=== PATIENT | male | born 1975 | race Caucasian/White ===

== ENCOUNTER 2022-04-21 10:23 | Outpatient (CLI) | payer BC, SELFPAY ==
--- NOTE | 2022-04-21 11:15 | CRLHL7_ITS ---
For Patients: As a result of the Century Cures Act, medical imaging exams and procedure reports are released immediately into your electronic medical record. You may view this report before your referring provider. If you have questions, please contact your health care provider. INDICATION: Exertional headaches. TECHNIQUE: 3D fcnj-[id number] magnetic resonance angiography of the head with 3D MIP reconstructions provided. Diffusion imaging was also obtained. COMPARISON: Brain MRA from 06/05/2012. FINDINGS: No evidence of acute ischemia. No proximal large vessel occlusion. The anterior cerebral arteries are patent. The middle cerebral arteries are patent. The posterior cerebral arteries are patent. The intradural vertebral arteries and basilar artery are patent. The intracranial internal carotid arteries are patent. No aneurysm or high flow vascular malformation. IMPRESSION: IMPRESSION 1. No acute ischemia. No proximal large vessel occlusion or flow-limiting stenosis. No aneurysm. Dictated by Orestes Ellison MD @ 04/21/2022 12:42:36 PM (Electronically Signed)
== END 2022-04-21 10:24 | disposition home or self-care (01) ==
PROVIDERS: PCP Family Medicine; Visit Provider Family Medicine
DX: G44.84 Primary exertional headache (principal)
CPT/HCPCS: 70544

== ENCOUNTER 2022-05-29 14:57 | Outpatient (CLI) | payer BC, SELFPAY ==
[2022-05-29 17:37] LABS: Albumin* 4.7 g/dL (3.3-5.0); Chloride* 94 mmol/L (96-114); Sodium* 133 mmol/L (135-149)
[2022-05-29 17:38] LABS: Potassium* 3.3 mmol/L (3.6-5.1)
[2022-05-29 17:40] LABS: Alkaline Phosphatase* 51 U/L (40-150); Aspartate Amino Transferase* 50 U/L (12-35); Bilirubin Total* 1.2 mg/dL (0.1-1.5); Blood Urea Nitrogen* 10 mg/dL (5-24); Carbon Dioxide* 29 mmol/L (20-32); Cholesterol* 201 mg/dL (90-199); Creatinine* 0.6 mg/dL (0.5-1.5); Estimated Glomerular Filt Rate 118 ml/min; Glucose* 116 mg/dL (60-115); Total Protein* 7.6 g/dL (6.0-8.3); Triglycerides* 391 mg/dL (40-149)
[2022-05-29 17:41] LABS: Alanine Aminotransferase* 78 U/L (4-50); Calcium* 9.6 mg/dL (8.4-10.6); HDL Cholesterol* 33 mg/dL (>=40); LDL Cholesterol Calculated 90 mg/dL (<100)
[2022-05-29 18:48] LABS: Creatinine Urine 26.2 mg/dL
[2022-05-29 18:52] LABS: Microalbumin Creatinine Ratio 30 mg/g (0-30); Microalbumin Urine 1 mg/dL
== END 2022-05-29 14:58 | disposition home or self-care (01) ==
PROVIDERS: PCP Family Medicine; Visit Provider Family Medicine
DX: E78.5 Hyperlipidemia, unspecified (principal); I10 Essential (primary) hypertension; E13.9 Other specified diabetes mellitus without complications; R73.9 Hyperglycemia, unspecified; Z13.89 Encounter for screening for other disorder
CPT/HCPCS: 80053; 80061; 82043; 82570

== ENCOUNTER 2023-06-14 13:21 | Outpatient (CLI) | payer BC, SELFPAY | END 2023-06-14 13:22 | disposition home or self-care (01) | LOC: NFLDREF 06-25 08:23 | PROVIDERS: PCP Family Medicine; Referring Provider Family Medicine; Visit Provider Nurse Practitioner Family | DX: E78.2 Mixed hyperlipidemia (principal); K76.0 Fatty (change of) liver, not elsewhere classified; E13.9 Other specified diabetes mellitus without complications | CPT/HCPCS: 80053; 80061 ==

== ENCOUNTER 2023-10-13 00:19 | Emergency (ER) | payer BC, SELFPAY ==
[2023-10-13 00:30] VITALS: BP 159/107; PULSE 99; RESP 18; TEMP 36.3; O2SAT 98; BMI 31.9
[2023-10-13] MEDS: predniSONE 20 MG TABLET 40 MG PO (01:03)
[2023-10-13] MEDS: hydrOXYzine pamoate 25 MG CAPSULE 50 MG PO (01:03)
--- NOTE | 2023-10-13 01:08 | ED_ITS ---
HPI - General Adult General Chief complaint: Allergic Reaction Stated complaint: rash Time Seen by Provider: 10/13/23 00:22 Source: patient Mode of arrival: ambulatory History of Present Illness HPI narrative: 48-year-old male presents the emergency department with itchy hives, worsening in nature. No airway compromise, lip, tongue, throat swelling or itching, no shortness of breath. No history of anaphylaxis. Hives originally started in the gluteal area along the posterior waist band about 2 and half weeks ago. He does spend a lot of time outdoors per his report and has potential exposures to grasses, plant material but also some household insecticides from spraying mosquitos. About 1 week after he had the 1st round of hives, he started oral semaglutide. He wonders if the medication could be connected since he has been having many more hives. He applied topical hydrocortisone and Benadryl to the original lesion on the waist band and things did improve. He went to [place] for a week and was off the semaglutide. He restarted the medication this morning and has been having worsening of hives ever since. It was very warm today and he was also working outside in the last couple of days as well. Lesions moved from the waist band to underneath the right armpit and he thought it could be ringworm because it had some central clearing. He tried applying some Lotrimin without significant improvement. No obvious tick exposures but we are in an endemic area. Worsening of hives along forearms and now upper thighs. Nothing on the face or neck. No one else with similar symptoms in the home. Other than the medication, no new exposures that he is aware of. He has been using Benadryl today with no significant improvement. Did also briefly try nondrowsy antihistamine once. He also has an immune modulating cream for eczema that he tried with some temporary relief of symptoms but only where the cream was applied. Has not been treated with steroids. Reports that he did have similar hives when he was probably 6 or 7 years old and was treated with some medication but he cannot remember what. Resolve without complication but has never had hives like this since. No recent signs of acute illness, COVID or other viral symptoms. Past medical history notable for obesity, hypertension, hyperlipidemia, type 2 diabetes. Medications accurate as listed with the exception of the oral semaglutide. Nonsmoker. Pertinent travel to [place] only. ROS is otherwise negative times 12 systems with the exception of the skin symptoms as described above. Related Data Previous Rx's ?Medication ?Instructions ?Recorded atenolol 50 mg tablet 50 mg PO DAILY #90 tabs 06/21/23 atorvastatin 20 mg tablet 20 mg PO QDAY #90 tabs 06/21/23 chlorthalidone 25 mg tablet 25 mg PO DAILY #90 tabs 06/21/23 losartan 100 mg tablet 100 mg PO DAILY #90 tabs 06/21/23 metformin 750 mg tablet,extended 1,500 mg (2 x 750 mg) PO QDAY #180 06/21/23 release 24 hr tabs omeprazole 20 mg capsule,delayed 20 mg PO DAILY #90 caps 06/21/23 release terbinafine HCl 250 mg tablet 250 mg PO QDAY #45 tabs 06/21/23 prednisone 20 mg tablet 20 mg PO BID #10 tabs 10/13/23 Allergies Allergy/AdvReac Type Severity Reaction Status Date / Time cyclobenzaprine Allergy Intermediate Nausea Verified 06/21/23 10:53 PFSH PFS Surgical History Status post open reduction and internal fixation (ORIF) of fracture ?Z98.890 - Other specified postprocedural states (ICD-10) ?Z87.81 - Personal history of (healed) traumatic fracture (ICD-10) Social History Smoking Status: Never smoker Little interest or pleasure in doing things: not at all Feeling down, depressed, or hopeless: not at all Exam Const: Vital Signs, click to edit/add: Vital Signs - 24 hr 10/13/23 00:30 Temperature 97.3 F L Pulse Rate [Pulse Oximeter] 99 Respiratory Rate 18 Blood Pressure [Ri ght Upper Arm] 159/107 H Pulse Oximetry 98 Oxygen Delivery Me thod Room Air Documenting provider has reviewed patient's vital signs: yes Common normals: no apparent distress General appearance: cooperative, comfortable and well kempt HENMT: Common normals: normocephalic and oropharynx normal Head and scalp: normocephalic Mouth: oral and palatal mucosa normal, lip normal and tongue normal Throat: posterior oropharynx normal Eye: Common normals: conjunctivae normal General eye: normal appearance of both eyes Conjunctiva: conjunctiva(e) normal Neck & C-Spine: Common normals: full ROM and no lymphadenopathy Resp: Common normals: normal respiratory effort, no use of accessory muscles and clear to auscultation bilaterally Effort & inspection: able to speak in complete sentences Auscultation: clear to auscultation bilaterally Cardio: Common normals: regular rate, regular rhythm, S1 normal heart sound, S2 normal heart sound and no murmurs Rate: regular rate Rhythm: regular rhythm Heart sounds: S1 normal and S2 normal Extremity: Common normals: normal to inspection and normal capillary refill Neuro: Speech: speech normal Motor exam: no movement abnormalities noted Psych: Appearance: well kempt Attitude: engaged Thought content: normal thought content Insight: insight good Judgement: judgment good Skin: Narrative: Mild hives along dorsal surface of forearms, slightly in right upper chest wall/axilla, waistband area, bilateral ventral upper thighs. No feet, hands, lower legs, neck, face. Typical have appearance with some central clearing and a few areas, slightly raised, sharp borders. Course Course ED Course: No signs of anaphylaxis, respiratory distress. Mild urticaria without adequate clinical response to Benadryl only. Only new potential medication is semaglutide but reaction started before medication. Most likely viral or environmental exposure, plants, etc.. Counseled patient that what is currently feeling the reaction may not necessarily be the same component that started the reaction. Once reaction starts, it can be more easily fueled by friction, heat, etc.. He seemed understand that this makes sense for him. He would like to stop the semaglutide, this is his choice. I do not necessarily think that there is a connection here. Suspected viral or environmental exposure. Recommended prednisone 20 mg twice daily, 1st dose given in ED. Total of 5 days. Will give 50 of Vistaril here in the ED. Patient will continue on nondrowsy antihistamine like Claritin, Vale or Zyrtec 1-2 times daily for the next 10 days. Benadryl 25 mg every 6 hours as needed for itch. Try to avoid heat and friction. Okay to use [id number] hydrocortisone cream, would discontinue the Lotrimin and Benadryl cream. Symptoms should start to improve after about 24 hours. If not improving at all after 3 days, would recommend office visit, blood work, viral swabs. Cold showers if significant itch in sudden worsening. ED presentation if airway compromise, lips the tongue and throat swelling. Vital Signs Vital signs: Initial Vital Signs Temperature 97.3 F L 10/13/23 00:30 Temperature Source Temporal Artery Scan 10/13/23 00:30 Pulse Rate 99 10/13/23 00:30 Pulse Rhythm Regular 10/13/23 00:30 Respiratory Rate 18 10/13/23 00:30 Blood Pressure 159/107 H 10/13/23 00:30 Blood Pressure Mean 124 H 10/13/23 00:30 Blood Pressure Position Sitting 10/13/23 00:30 Pulse Oximetry 98 10/13/23 00:30 Oxygen Delivery Method Room Air 10/13/23 00:30 Vital Signs Temperature 97.3 F L 10/13/23 00:30 Pulse Rate 99 10/13/23 00:30 Respiratory Rate 18 10/13/23 00:30 Blood Pressure 159/107 H 10/13/23 00:30 Pulse Oximetry 98 10/13/23 00:30 Oxygen Delivery Method Room Air 10/13/23 00:30 Temperature 97.3 F L 10/13/23 00:30 Pulse Rate 99 10/13/23 00:30 Respiratory Rate 18 10/13/23 00:30 Blood Pressure 159/107 H 10/13/23 00:30 Pulse Oximetry 98 10/13/23 00:30 Oxygen Delivery Method Room Air 10/13/23 00:30 Medications Administered Medications: Generic Name Dose Route Start Last Admin Trade Name Freq PRN Reason Stop Dose Admin Hydroxyzine Pamoate 50 mg 10/13/23 00:56 10/13/23 01:03 Hydroxyzine Pamoate 25 Mg Capsule PO 10/13/23 00:57 50 mg ONCE ONE Administration Prednisone 40 mg 10/13/23 00:56 10/13/23 01:03 Prednisone 20 Mg Tablet PO 10/13/23 00:57 40 mg ONCE ONE Administration Discharge Plan Discharge Clinical Impression: Urticaria Patient Disposition: Home w/ Parent or Adult Condition: Stable Instructions: Urticaria (ED) Additional Instructions: As we discussed, the hives are not a sign of pending anaphylaxis. There are no signs of airway compromise, tongue or lip swelling or other dangerous side effects. It can be very difficult to tell what is triggering the reaction. Most of the time it starts with some sort of new medication or a plant or chemical exposure. Once the immune system is triggered, it can then be more easily triggered by other things such as heat, friction, etc.. Since the reaction started before your new medication, I do not think that that is the source, but your decision to stop the medication is reasonable. I I would also offer that it is common this time of year for the reaction to be triggered by exposure to plants, weeds or other agricultural chemicals. Once the reaction starts, again it is often fueled by heat, friction or just repeat exposure through the air. I recommend applying topical hydrocortisone to any itchy areas and ice as needed for comfort. Try to avoid heat, friction and itching as much as possible. I have started you on prednisone, an immune suppressant for the next 5 days. Take this 2 times daily but try to avoid using 3 hours before bedtime. It may review up a little bit and make you hungry. Continue taking some sort of nondrowsy antihistamine like Claritin, Vale, Zyrtec or similar. Use this 1-2 times daily for the next 10 days. If you are still itchy, I would recommend Benadryl 25 mg every 6 hours. Most people stop getting a lot of new spots within 24 hours of starting the prednisone. If you start to get a anton again, take a cold shower, some Benadryl and manage as above. Many people grow into this type of allergy. If you tend to get it in the awlters again, it is recommended that you restart the antihistamines as above. If you noticed difficulty swallowing, difficulty breathing, swelling of the lips tongue and throat, you should come to an emergency room. If you are not sta rting to have some improvement by Sunday, I would recommend a follow-up appointment in the clinic or urgent care. Activity Level: No Restrictions Discharge Diet: Regular Prescriptions: New prednisone 20 mg tablet 20 mg PO BID Qty: 10 0RF No Action atenolol 50 mg tablet 50 mg PO DAILY Qty: 90 3RF atorvastatin 20 mg tablet 20 mg PO QDAY Qty: 90 3RF chlorthalidone 25 mg tablet 25 mg PO DAILY Qty: 90 3RF losartan 100 mg tablet 100 mg PO DAILY Qty: 90 3RF metformin 750 mg tablet extended release 24 hr 1,500 mg PO QDAY Qty: 180 3RF omeprazole 20 mg capsule,delayed release(DR/EC) 20 mg PO DAILY Qty: 90 3RF terbinafine HCl 250 mg tablet 250 mg PO QDAY Qty: 45 0RF Follow Up/Referrals: Mark Purcell MD [Primary Care Provider] - Stand Alone Forms: Community Inf[facility] Info Instructions
[2023-10-13 01:10] VITALS: BP 159/105; PULSE 104; RESP 18; TEMP 36.6
== END 2023-10-13 01:12 | disposition home or self-care (01) ==
PROVIDERS: Emergency Provider Family Medicine; PCP Family Medicine
DX: L50.9 Urticaria, unspecified (principal)
CPT/HCPCS: 99283; A9270; J7512

== ENCOUNTER 2024-12-08 09:30 | Outpatient (CLI) | payer BC, SELFPAY | END 2024-12-08 09:31 | disposition home or self-care (01) | LOC: NFLDREF 12-11 16:34 | PROVIDERS: PCP Family Medicine; Referring Provider Family Medicine; Visit Provider Nurse Practitioner Family | DX: E13.9 Other specified diabetes mellitus without complications (principal); K76.0 Fatty (change of) liver, not elsewhere classified; E78.2 Mixed hyperlipidemia; Z00.00 Encounter for general adult medical examination without abnormal findings | CPT/HCPCS: 80053; 80061; 80076 ==

== ENCOUNTER 2024-12-10 09:29 | Outpatient (CLI) | payer BC, SELFPAY | END 2024-12-10 09:30 | disposition home or self-care (01) | LOC: FRMREF 09:30 | PROVIDERS: PCP Family Medicine; Visit Provider Nurse Practitioner Family | DX: Z12.5 Encounter for screening for malignant neoplasm of prostate (principal) | CPT/HCPCS: G0103 ==